=== PATIENT | female | born 1975 | race Caucasian/White ===

== ENCOUNTER 2023-09-02 08:43 | Emergency (ER) | payer OTHER ==
[~2023-09-02] VITALS: Ht 161.3 cm; Wt 98.4 kg
[2023-09-02 08:50] VITALS: BP 126/70; PULSE 67; RESP 16; TEMP 97.8; O2SAT 100
[2023-09-02 09:11] VITALS: BP 126/70; PULSE 67; RESP 16; TEMP 97.8; O2SAT 100
[2023-09-02] MEDS: IBUPROFEN 600 MG TAB PO ONE (09:13)
== END 2023-09-02 09:53 | disposition home or self-care (01) ==
LOC: MED 08:43
DX: S83.92XA Sprain of unspecified site of left knee, initial encounter (principal); Z98.890 Other specified postprocedural states; Z90.710 Acquired absence of both cervix and uterus; X58.XXXA Exposure to other specified factors, initial encounter; Y92.89 Other specified places as the place of occurrence of the external cause; Y93.89 Activity, other specified; Y99.8 Other external cause status
CPT/HCPCS: 73562; 99283

== ENCOUNTER 2023-12-11 17:55 | Emergency (ER) | payer OTHER ==
[~2023-12-11] VITALS: Ht 165.1 cm; Wt 99.3 kg
[2023-12-11 18:19] VITALS: BP 131/78; PULSE 94; RESP 18; TEMP 99.7; O2SAT 96
[2023-12-11 18:54] VITALS: TEMP 99.7
[2023-12-11 19:05] LABS: APPEARANCE,URINE TURBID (CLEAR); BILIRUBIN,URINE NEGATIVE (NEGATIVE); BLOOD, URINE 3+ (NEGATIVE); COLOR,URINE ORANGE (YELLOW); LEUKOCYTE ESTERASE ,URINE 3+ (NEGATIVE); NITRITE, URINE NEGATIVE (NEGATIVE); PROTEIN,URINE 2+ (NEGATIVE); UGLUCOSE NEGATIVE (NEGATIVE); UROBILINOGEN,URINE 0.2 EU/dL (0.2 - 1)
[2023-12-11 19:09] LABS: RBC,URINE TOO NUMEROUS TO COUN /HPF (0-5)
[2023-12-11 19:10] LABS: BACTERIA,URINE None Seen /HPF (None Seen); WBC,URINE >25 (MANY) /HPF (0-5)
[2023-12-11 19:11] LABS: MUCUS,URINE None Seen /LPF (None Seen); SQUAMOUS EPITHELIAL CELL,UR 4-10 (MOD) /LPF (0-3 (FEW))
[2023-12-11] MEDS ORDERED: CIPR500T4 PO (19:44)
[2023-12-11] MEDS ORDERED: PHEN-1877 PO (19:44)
[2023-12-11] MEDS ORDERED: IBUP-2213 PO (19:44)
[2023-12-11] MEDS: KETOROLAC 60 MG/2 ML VIAL IM ONE (20:04)
[2023-12-11 20:25] VITALS: BP 112/47; PULSE 87; RESP 18; O2SAT 97
== END 2023-12-11 20:25 | disposition home or self-care (01) ==
LOC: MED 17:55
DX: N39.0 Urinary tract infection, site not specified (principal); R19.7 Diarrhea, unspecified; Z79.899 Other long term (current) drug therapy; Z90.710 Acquired absence of both cervix and uterus; Z98.890 Other specified postprocedural states
CPT/HCPCS: 81001; 81025; 96372; 99283; J1885

== ENCOUNTER 2024-03-28 15:08 | Emergency (ER) | payer OTHER ==
[~2024-03-28] VITALS: Ht 160 cm; Wt 96.6 kg
[~2024-03-28 15:08] MED LIST: CIPR500T4 PO; IBUP-2213 PO; PHEN-1877 PO
[2024-03-28 15:16] VITALS: BP 115/80; PULSE 84; RESP 20; TEMP 98.2; O2SAT 98
[2024-03-28] MEDS: KETOROLAC 30 MG/ML VIAL IM ONE (15:48)
[2024-03-28] MEDS ORDERED: KETO10TA2 PO (16:45)
[2024-03-28 16:56] VITALS: BP 115/80; PULSE 84; RESP 20; TEMP 98.2; O2SAT 98
== END 2024-03-28 16:56 | disposition home or self-care (01) ==
LOC: MED 15:08
DX: S83.91XA Sprain of unspecified site of right knee, initial encounter (principal); Z79.899 Other long term (current) drug therapy; X58.XXXA Exposure to other specified factors, initial encounter; Y92.89 Other specified places as the place of occurrence of the external cause; Y93.89 Activity, other specified; Y99.8 Other external cause status
CPT/HCPCS: 73562; 96372; 99283; J1885; Q0092